=== PATIENT | female | born 1975 | race Caucasian/White ===

== ENCOUNTER 2022-02-28 17:31 | Emergency (ER) | payer BC ==
[2022-02-28] MEDS ORDERED: Levofloxacin 750 MG Tab PO ONE (17:32)
[2022-02-28 18:11] LABS: ESTIMATED GFR 109 mL/min (>60)
[2022-02-28 18:34] VITALS: BP 153/93; PULSE 93
[2022-02-28] MEDS ORDERED: Levofloxacin 750 MG Tab PO STA ×2 (19:07→19:10)
== END 2022-02-28 19:22 | disposition home or self-care (01) ==
LOC: FB.ED 17:31
DX: N12 Tubulo-interstitial nephritis, not specified as acute or chronic (principal); Z88.1 Allergy status to other antibiotic agents; Z88.2 Allergy status to sulfonamides
CPT/HCPCS: 36415; 80048; 81001; 85025; 86140; 99283; A9270